=== PATIENT | male | born 1945 | race Caucasian/White ===

== ENCOUNTER 2022-12-22 10:21 | Outpatient (CLI) | payer BC | END 2022-12-22 10:22 | disposition home or self-care (01) | LOC: CSHMRI 10:21 | PROVIDERS: ATTEND Internal Medicine | DX: R41.89 Other symptoms and signs involving cognitive functions and awareness (principal); G91.2 (Idiopathic) normal pressure hydrocephalus | CPT/HCPCS: 70551 ==